=== PATIENT | female | born 1980 | race Caucasian/White ===

== ENCOUNTER → 2017-01-16 | Outpatient (CLI) | payer OTHER, MEDICARE ==
[~2017-01-16] MED LIST: ALBU18HF4 IH; ALPR0.25 PO; BECL7.3A4 ORAL INH; BUDE1AMP IH; BUTA-253 PO; ESCI20TA30 PO; METF500T4 PO; METO5TAB6 PO; OMEP-29 PO; ONDA4TAB4 PO; OXYC10TA57 PO; OXYC20TA44 PO CHEW; PREN1TAB39 PO; RANI150C11 PO; SUCR1ORA3 PO; TRAZ-170 PO
--- NOTE | 2017-01-17 08:24 | DI ---
Indication: ITS.REASON: S83.402A LT KNEE SPRAIN; M25.562 LEFT KNEE PAIN PROCEDURE: MRI KNEE LEFT W/O CONTRAST: Encounter: Initial Comparison: None Technique: Multiplanar multisequence MR imaging of the left knee was performed without contrast. Findings: The lateral meniscus is normal. Medial meniscus is normal. The ACL and PCL are normal. The MCL and lateral collateral ligament complex are within normal limits. The extensor mechanism is normal. Bone marrow signal intensity is normal. No acute fracture. Lateral compartment cartilage is normal. Medial compartment cartilage is normal. Patellofemoral compartment cartilage is maintained. No joint effusion or Enciso's cyst. Muscular signal intensity is normal. Impression: Negative exam. No meniscal or ligamentous injury. .
== END ==
LOC: IMA 16:28
PROVIDERS: ATTEND Physician Assistant
DX: M25.562 Pain in left knee (principal); Z87.828 Personal history of other (healed) physical injury and trauma